=== PATIENT | male | born 2000 | race Caucasian/White ===

== ENCOUNTER 2021-03-20 11:34 | Emergency (ER) | payer OTHER ==
[~2021-03-20] VITALS: Ht 182.9 cm; Wt 86.0 kg
[2021-03-20 11:35] VITALS: BP 129/90
[2021-03-20] MEDS ORDERED: MEDR4PAK PO (13:35)
[2021-03-20] MEDS ORDERED: FLUO10CA18 PO (13:35)
== END 2021-03-20 14:38 | disposition home or self-care (01) ==
LOC: M ED 11:34
DX: M26.602 Left temporomandibular joint disorder, unspecified (principal)